=== PATIENT | male | born 1960 | race Caucasian/White ===

== ENCOUNTER 2017-07-02 21:55 | Emergency (ER) | payer SELFPAY ==
[2017-07-02] MEDS ORDERED: AZITHROMYCIN 250 MG TAB ONE (23:00)
[2017-07-02] MEDS ORDERED: LEVALBUTEROL 0.63 MG/3 ML NEB ONE (23:01)
--- NOTE | 2017-07-02 23:13 | ER ---
Nurse's Notes [facility] Name: Nemesio Bunn Age: 56 yrs Sex: Male : 1960 Arrival Date: 07/02/2017 Time: 21:56 Bed 19 Private MD: Diagnosis: Alcohol abuse with intoxication;Chronic obstructive pulmonary disease, unspecified Presentation: 07/02 22:10 Presenting complaint: Patient states: "I was sitting drinking some whiskey, and the air aj1 just wasn't there. I've been short of breath for 15 years" Patient reports shortness of breath, productive cough for the 3 days. States that he gets "frequent lung infections" Denies CP, palpitations, fever. Transition of care: patient was not received from another setting of care. Onset of symptoms was 2002. Care prior to arrival: None. 22:10 Method Of Arrival: EMS: [facility] aj 22:10 Acuity: MICHELE 4 aj1 Triage Assessment: 22:16 General: Appears in no apparent distress. comfortable, Behavior is calm, cooperative, aj1 appropriate for age, Smells of alcohol. Pain: Denies pain. EENT: No deficits noted. Neuro: Level of Consciousness is awake, alert, obeys commands, Oriented to person, place, time, situation. Cardiovascular: Patient's skin is warm and dry. Respiratory: Reports shortness of breath cough that is productive, Airway is patent Respiratory effort is even, unlabored, Respiratory pattern is regular, symmetrical, Onset: The symptoms/episode began/occurred 15 years ago, the patient has mild shortness of breath. Historical: - Allergies: 22:16 No Known Allergies; aj1 - PMHx: 22:16 Alcoholism; cardiomyopathy; COPD; Hypertension; Myocardial infarction; Sleep Apnea; aj1 spinal stenosis; - PSHx: 22:16 None; aj1 - Immunization history:: Adult Immunizations up to date. - Social history:: Patient uses alcohol, on a daily basis. States " I drink a 1/2 gallon of whiskey every day.". Smoking status: unknown. Screenin:10 Abuse screen: Denies threats or abuse. Nutritional screening: No deficits noted. jd3 Tuberculosis screening: No symptoms or risk factors identified. Fall Risk Mental Status- Overestimates/Forgets Limitations (15 pts.). Total Frey Fall Scale indicates No Risk (0-24 pts). Assessment: 22:11 General: Appears in no apparent distress. comfortable, Behavior is calm, cooperative, jd3 appropriate for age, Smells of alcohol. Pain: Denies pain. Neuro: Level of Consciousness is awake, alert, obeys commands, Oriented to person, place, time, situation. Cardiovascular: Heart tones S1 S2 present Capillary refill < 3 seconds Patient's skin is warm and dry. Respiratory: Airway is patent Respiratory effort is even, unlabored, Respiratory pattern is regular, symmetrical, Breath sounds are clear bilaterally. GI: Abdomen is round Bowel sounds present X 4 quads. Abd is soft and non tender X 4 quads. : No signs and/or symptoms were reported regarding the genitourinary system. EENT: No signs and/or symptoms were reported regarding the EENT system. Derm: Skin is intact, Skin is dry, Skin is normal, Skin temperature is warm. Musculoskeletal: Circulation, motion, and sensation intact. Range of motion: intact in all extremities. 23:10 Reassessment: Patient appears in no apparent distress at this time. No changes from jd3 previously documented assessment. Patient and/or family updated on plan of care and expected duration. Pain level reassessed. Patient is alert, oriented x 3, equal unlabored respirations, skin warm/dry/pink. 23:50 Reassessment: Patient appears in no apparent distress at this time. Patient and/or jd3 family updated on plan of care and expected duration. Pain level reassessed. Patient is alert, oriented x 3, equal unlabored respirations, skin warm/dry/pink. pt reported understanding of discharge instructions, even and steady gait upon discharge. Vital Signs: 22:16 BP 121 / 84; Pulse 100; Resp 20; Temp 98.1; Pulse Ox 96% on R/A; Weight 112.49 kg; aj1 Height 5 ft. 10 in. (177.80 cm); Pain 0/10; 23:09 BP 111 / 71; Pulse 85; Resp 20 S; Pulse Ox 96% on R/A; Pain 0/10; jd3 22:16 Body Mass Index 35.58 (112.49 kg, 177.80 cm) aj1 ED Course: 21:56 Patient arrived in ED. ds1 22:07 [facility]C [facility] snw 22:07 Tyrell Whiteside MD is Attending Physician. snw 22:10 Melvina Joshua, RN is Primary Nurse. aj1 22:15 Triage completed. aj1 22:16 Arm band placed on. aj1 22:31 Patient moved to radiology via wheelchair. kc2 22:31 X-ray completed. Patient tolerated procedure well. kc2 22:31 Patient moved back from radiology. kc2 23:11 Patient has correct armband on for positive identification. jd3 23:51 No provider procedures requiring assistance completed. Patient did not have IV access jd3 during this emergency room visit. Administered Medications: 22:46 Drug: Xopenex (3) 0.63 mg Route: Inhalation; jd3 22:46 Drug: Zithromax 500 mg Route: PO; jd3 23:46 Follow up: Response: No adverse reaction jd3 23:14 CANCELLED (Duplicate Order): Zithromax 500 mg PO once snw 23:33 Drug: Decadron 10 mg Route: IM; Site: left deltoid; jd3 23:46 Follow up: Response: No adverse reaction jd3 Outcome: 23:13 Discharge ordered by . snw 23:51 Discharged to home ambulatory. jd3 23:51 Condition: stable 23:51 Discharge instructions given to patient, Instructed on discharge instructions, follow up and referral plans. medication usage, Demonstrated understanding of instructions, follow-up care, medications, Prescriptions given X 2. 23:52 Patient left the ED. jd3 Signatures: Melvina Joshua, RN RN aj1 Paige Fischer, MASTER CONTROL SUPERVISOR-C MASTER CONTROL SUPERVISOR-CsnTara Nichols1 Amie Villagran kc2 Jose Shah RN RN jd3
--- NOTE | 2017-07-02 23:13 | EDPHYS ---
Physician Documentation [facility] Name: Nemesio Bunn Age: 56 yrs Sex: Male : 1960 Arrival Date: 07/02/2017 Time: 21:56 Bed 19 Private MD: ED Physician Tyrell Whiteside HPI: 07/02 22:22 This 56 yrs old Male presents to ER via EMS with complaints of Shortness Of snw Breath. 22:22 The patient has shortness of breath at rest. Onset: The symptoms/episode began/occurred snw suddenly, 2 hour(s) ago, and became persistent. Duration: The symptoms are chronic, are continuous. Associated signs and symptoms: Pertinent positives: non-productive cough. Severity of symptoms: At their worst the symptoms were moderate. The patient has experienced similar episodes in the past, chronically, and the symptoms today are exactly the same. It is unknown whether or not the patient has recently seen a physician. pt states he likes Whiskey, has 15 % liver function and has Hep C. States he was drinking and became short of breath a few hours ago. Historical: - Allergies: 22:16 No Known Allergies; aj1 - PMHx: 22:16 Alcoholism; cardiomyopathy; COPD; Hypertension; Myocardial infarction; Sleep Apnea; aj1 spinal stenosis; - PSHx: 22:16 None; aj1 - Immunization history:: Adult Immunizations up to date. - Social history:: Patient uses alcohol, on a daily basis. States " I drink a 1/2 gallon of whiskey every day.". Smoking status: unknown. ROS: 22:27 Eyes: Negative for injury, pain, redness, and discharge, ENT: Negative for injury, snw pain, and discharge, Neck: Negative for injury, pain, and swelling, Cardiovascular: Negative for chest pain, palpitations, and edema, Abdomen/GI: Negative for abdominal pain, nausea, vomiting, diarrhea, and constipation, Back: Negative for injury and pain, : Negative for injury, bleeding, discharge, and swelling, MS/Extremity: Negative for injury and deformity, Skin: Negative for injury, rash, and discoloration, Neuro: Negative for headache, weakness, numbness, tingling, and seizure. 22:27 Constitutional: Positive for body aches, malaise. 22:27 Respiratory: Positive for cough, shortness of breath. Exam: 22:28 Head/Face: Normocephalic, atraumatic. Eyes: Pupils equal round and reactive to light, snw extra-ocular motions intact. Lids and lashes normal. Conjunctiva and sclera are non-icteric and not injected. Cornea within normal limits. Periorbital areas with no swelling, redness, or edema. ENT: Nares patent. No nasal discharge, no septal abnormalities noted. Tympanic membranes are normal and external auditory canals are clear. Oropharynx with no redness, swelling, or masses, exudates, or evidence of obstruction, uvula midline. Mucous membranes moist. Neck: Trachea midline, no thyromegaly or masses palpated, and no cervical lymphadenopathy. Supple, full range of motion without nuchal rigidity, or vertebral point tenderness. No Meningismus. Chest/axilla: Normal chest wall appearance and motion. Nontender with no deformity. No lesions are appreciated. Cardiovascular: Regular rate and rhythm with a normal S1 and S2. No gallops, murmurs, or rubs. Normal PMI, no JVD. No pulse deficits. Respiratory: Lungs have equal breath sounds bilaterally, clear to auscultation and percussion. No rales, rhonchi or wheezes noted. No increased work of breathing, no retractions or nasal flaring. Abdomen/GI: Soft, non-tender, with normal bowel sounds. No distension or tympany. No guarding or rebound. No evidence of tenderness throughout. Back: No spinal tenderness. No costovertebral tenderness. Full range of motion. Skin: Warm, dry with normal turgor. Normal color with no rashes, no lesions, and no evidence of cellulitis. MS/ Extremity: Pulses equal, no cyanosis. Neurovascular intact. Full, normal range of motion. Neuro: Awake and alert, GCS 15, oriented to person, place, time, and situation. Cranial nerves II-XII grossly intact. Motor strength 5/5 in all extremities. Sensory grossly intact. Cerebellar exam normal. Normal gait. 22:28 Constitutional: The patient appears awake, smells of alcohol, unkempt. Vital Signs: 22:16 BP 121 / 84; Pulse 100; Resp 20; Temp 98.1; Pulse Ox 96% on R/A; Weight 112.49 kg; aj1 Height 5 ft. 10 in. (177.80 cm); Pain 0/10; 23:09 BP 111 / 71; Pulse 85; Resp 20 S; Pulse Ox 96% on R/A; Pain 0/10; jd3 22:16 Body Mass Index 35.58 (112.49 kg, 177.80 cm) aj1 MDM: 22:07 Patient medically screened. snw 23:14 Data reviewed: vital signs, nurses notes. Data interpreted: Pulse oximetry: on room air snw is 96 %. Interpretation: acceptable. Counseling: I had a detailed discussion with the patient and/or guardian regarding: the historical points, exam findings, and any diagnostic results supporting the discharge/admit diagnosis, radiology results, the need for outpatient follow up, to return to the emergency department if symptoms worsen or persist or if there are any questions or concerns that arise at home. 07/02 22:21 Order name: Chest Pa And Lat (2 Views) XRAY snw Administered Medications: 22:46 Drug: Xopenex (3) 0.63 mg Route: Inhalation; jd3 22:46 Drug: Zithromax 500 mg Route: PO; jd3 23:46 Follow up: Response: No adverse reaction jd3 23:14 CANCELLED (Duplicate Order): Zithromax 500 mg PO once snw 23:33 Drug: Decadron 10 mg Route: IM; Site: left deltoid; jd3 23:46 Follow up: Response: No adverse reaction jd3 Disposition: 07/03 06:19 Co-signature as Attending Physician, Tyrell Whiteside MD. Disposition: 07/02/17 23:13 Discharged to Home. Impression: Alcohol abuse with intoxication, Chronic obstructive pulmonary disease, unspecified. - Condition is Stable. - Discharge Instructions: Chronic Bronchitis, Chronic Obstructive Pulmonary Disease. - Prescriptions for Albuterol Sulfate 90 mcg/actuation - inhale 1-2 puff by INHALATION route every 4-6 hours; 1 Inhaler. Zithromax 500 mg Oral Tablet - take 1 tablet by ORAL route once daily for 5 days; 5 tablet. - Medication Reconciliation Form, Thank You Letter, Antibiotic Education, Prescription Opioid Use form. - Follow up: Private Physician; When: 2 - 3 days; Reason: Recheck today's complaints, Continuance of care, Re-evaluation by your physician. Follow up: Emergency Department; When: As needed; Reason: Worsening of condition. Signatures: Dispatcher [employer] Melvina Ca RN RN aj1 Paige Fischer, AQUATIC LIFE LABORER-C AQUATIC LIFE LABORER-Csnw Tyrell Whiteside MD MD gs Davies, Jonathon RN RN jd3 Corrections: (The following items were deleted from the chart) 07/02 23:14 23:14 Zithromax 500 mg PO once ordered. snw snw
[2017-07-02] MEDS ORDERED: DEXAMETHASONE 10 MG/ML VIAL ONE (23:53)
[2017-07-02 23:59] VITALS: TEMP 98.1; O2SAT 96
[2017-07-03 00:14] VITALS: BP 111/71
--- NOTE | 2017-07-03 08:32 | RAD REPORT ---
EXAM DESCRIPTION: RAD - Chest Pa And Lat (2 Views) - 07/02/2017 10:45 pm CLINICAL HISTORY: Shortness of breath, cough COMPARISON: Portable chest March 2015, February 2013 and May 2008 TECHNIQUE: PA and lateral views of the chest were obtained. FINDINGS: The lungs are underinflated. No peripheral consolidation or mass. Lung markings are increa sed slightly in the lower left lung field. An early interstitial pneumonia at the left base is possib le. Failure is not suspected. Mediastinum is widened by the shallow inspiration and accentuated kypho sis. None of the prior studies show this degree of mediastinal widening. However, all of these prior studies were with a much greater inspiratory effort. Heart size is normal and central vasculature is within normal limits. No pleural effusion or pneumothorax seen. An acute bone process is doubtful. Degenerative changes are present at the right shoulder joint. There is approximately 50% compression of a mid to lower thoracic vertebral body. Osteopenic changes are present for the patient age. No ly tic or blastic component in the compressed vertebrae. None of the patient's prior imaging studies all ow a comparison. No aortic abnormality. IMPRESSION: Questionable early interstitial pneumonia left lower lung field. No mass or consolidatio n. Widened mediastinum is favored to be artifact of shallow inspiration. A repeat PA view with optimal i nspiratory effort may be helpful. Alternatively, CT chest imaging could be used to clear the mediasti num. Approximately 50% compression fracture mid to lower thoracic spine. This is suspected to be old but n o comparison is available. Bones appear osteopenic for the patient's age. Follow-up imaging could be performed if the patient has acute thoracic pain symptoms.
== END 2017-07-02 23:52 | disposition home or self-care (01) ==
LOC: ER 21:55
DX: J44.9 Chronic obstructive pulmonary disease, unspecified (principal); F10.129 Alcohol abuse with intoxication, unspecified
CPT/HCPCS: 71046; 96372; 99284; J1100